=== PATIENT | female | born 1950 | race Caucasian/White ===

== ENCOUNTER 2019-09-06 05:28 | Inpatient (IN) | payer OTHER ==
[2019-09-06] VITALS (14 sets, daily range): BP systolic 98–188; BP diastolic 61–119
[~2019-09-06] VITALS: Ht 157.5 cm; Wt 85.9 kg
[2019-09-06] MEDS ORDERED: METHOCARBAMOL500 M2 PO (05:53)
[2019-09-06] MEDS ORDERED: TYLENOL EXTRA500 MG PO (05:54)
[2019-09-06] MEDS ORDERED: EXCEDRIN MIGRA1 EAC1 (05:57)
[2019-09-06] MEDS ORDERED: MOTRIN IB PO (05:59)
[2019-09-06 06:09] LABS: HEMATOCRIT 34.5 % (37.0-47.0); HEMOGLOBIN 11.4 gm/dL (12.0-15.0); MCH 24.3 pg (26.0-34.0); MCHC 33.1 g/dL (28.0-37.0); MCV 73.4 fL (80.0-100.0); MPV 6.8 fl. (7.2-11.1); NUCLEATED RBCS 0 /100WBC; PLATELET COUNT* 779 thou/uL (150-400); RDW-CV 17.2 % (10.5-14.5); WBC 25.3 thou/uL (4.0-11.0)
[2019-09-06 06:18] LABS: INR 1.3; PROTIME 13.7 Seconds (9.20-11.50)
[2019-09-06 06:28] LABS: ALBUMIN 2.3 g/dL (3.4-5.0); CALCIUM 8.2 mg/dL (8.5-10.1); CREATININE 1.8 mg/dL (0.6-1.3); TOTAL PROTEIN 6.6 g/dL (6.4-8.2)
[2019-09-06 06:31] LABS: POTASSIUM 2.7 mmol/L (3.5-5.1)
[2019-09-06 07:08] LABS: ABSOLUTE EOSINOPHILS 0.3 thou/uL (0.0-0.7); ABSOLUTE LYMPHOCYTES 2.5 thou/uL (0.8-5.3); ABSOLUTE NEUTROPHILS 21.5 thou/uL (1.6-8.1); PLATELET ESTIMATE INCREASED
[2019-09-06 07:09] LABS: ANISOCYTOSIS 2+; BURR CELLS 2+; HYPOCHROMASIA 2+
[2019-09-06 07:10] LABS: MICROCYTES Occasional; OVALOCYTES 1+
[2019-09-06 12:15] LABS: URINE BILIRUBIN NEGATIVE (Negative); URINE BLOOD NEGATIVE (Negative); URINE CLARITY CLEAR; URINE COLOR YELLOW; URINE GLUCOSE-RANDOM NEGATIVE (Negative); URINE KETONES NEGATIVE (Negative); URINE LEUKOCYTES-REFLEX NEGATIVE (Negative); URINE NITRITE-REFLEX NEGATIVE (Negative); URINE PROTEIN TRACE (Negative); URINE SPECIFIC GRAVITY 1.015 (1.005-1.030); URINE UROBILINOGEN 0.2 E.U./dl (0.2-1.0)
--- NOTE | 2019-09-06 15:41 | EKG ---
[place] [address] ELECTROCARDIOGRAM REPORT Name: DEE DEE MORELAND Room: [address] IN .R.#: [id number] Admission: 09/06/19 Attend Phys: Jarrett Porter Discharge: Date of : 54 Date of Service: 09/06/19 0554 Report #: [id number] THIS REPORT FOR: //name// [facility] ED Test Date: 2019-09-06 Test Time: 05:54:46 Pat Name: DEE DEE MORELAND Department: Room: [facility] Gender: F Mechanic/Welder: STORMY : 1950 Requested By: Charlene Alcaraz Order Number: [id number] MD: Sundeep Broussard Measurements Intervals [place] Rate: 100 P: 49 AR: 194 QRS: -18 QRSD: 96 T: 57 QT: 389 QTc: 502 Interpretive Statements Sinus tachycardia with rare PVC Left atrial enlargement Borderline left axis deviation Possible anteroseptal infarct, age indeterminant Prolonged QT interval No previous ECG available for comparison Electronically Signed On 09-06-2019 15:40:51 CDT by Sundeep Broussard [email or web address] <ELECTRONICALLY SIGNED> By: Sundeep Broussard MD, [facility] 09/06/19 1540 0554 0554 Sundeep Broussard MD, [facility] /EPI
[2019-09-06 16:03] LABS: CALCIUM 8.2 mg/dL (8.5-10.1); CREATININE 1.6 mg/dL (0.6-1.3); MAGNESIUM 1.9 mg/dL (1.8-2.4)
[2019-09-06 16:05] LABS: POTASSIUM 4.4 mmol/L (3.5-5.1)
[2019-09-06 19:57] LABS: CALCIUM 7.5 mg/dL (8.5-10.1); CREATININE 1.8 mg/dL (0.6-1.3); MAGNESIUM 1.8 mg/dL (1.8-2.4); POTASSIUM 3.9 mmol/L (3.5-5.1)
[2019-09-06 23:46] LABS: POTASSIUM 3.7 mmol/L (3.5-5.1)
[2019-09-07] VITALS (21 sets, daily range): BP systolic 99–161; BP diastolic 61–91
[2019-09-07 06:05] LABS: ABSOLUTE BASOPHILS 0.1 thou/uL (0.0-0.2); ABSOLUTE EOSINOPHILS 0.1 thou/uL (0.0-0.7); ABSOLUTE LYMPHOCYTES 2.7 thou/uL (0.8-5.3); ABSOLUTE MONOCYTES 0.8 thou/uL (0.0-1.2); ABSOLUTE NEUTROPHILS 22.1 thou/uL (1.6-8.1); BASOPHILS 0.3 %; EOSINOPHILS 0.4 %; HEMATOCRIT 30.8 % (37.0-47.0); HEMOGLOBIN 10.1 gm/dL (12.0-15.0); LYMPHOCYTES 10.6 %; MCH 24.2 pg (26.0-34.0); MCHC 32.9 g/dL (28.0-37.0); MCV 73.5 fL (80.0-100.0); NUCLEATED RBCS 0 /100WBC; PLATELET COUNT* 740 thou/uL (150-400); POLYS 85.7 %; RBC 4.19 mil/uL (4.20-5.00); RDW-CV 17.1 % (10.5-14.5); WBC 25.8 thou/uL (4.0-11.0)
[2019-09-07 06:24] LABS: ALBUMIN 1.8 g/dL (3.4-5.0); CALCIUM 7.6 mg/dL (8.5-10.1); CREATININE 1.9 mg/dL (0.6-1.3); MAGNESIUM 1.8 mg/dL (1.8-2.4); POTASSIUM 3.9 mmol/L (3.5-5.1); TOTAL BILIRUBIN 1.2 mg/dL (<0.1-1.0); TOTAL PROTEIN 5.5 g/dL (6.4-8.2)
--- NOTE | 2019-09-07 10:20 | CON ---
[address] [address] CONSULTATION Name: DEE DEE MORELAND Room: [address] IN M.R.#: [id number] Admission: 09/06/19 Attend Phys: Jose Kathleen Discharge: Date of : 54 Report #: [id number] THIS REPORT FOR: //name// cc: Victor Manuel Lara MD, K. Gay MD ~ THIS REPORT FOR: //name// CC: Victor Manuel Porter DATE OF SERVICE: 09/07/2019 INFECTIOUS DISEASE CONSULTATION ATTENDING PHYSICIAN: Jarrett Porter DO REASON FOR EVALUATION: Bandemia. HISTORY OF PRESENT ILLNESS: Chart reviewed, patient examined. 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 She has had progressive weakness, does have a fairly new onset of what described as very significant back discomfort and pain. There is noted to have vertebral issues. It is not clear if she has had any fevers. She admits to weight loss, although is not sure to the extent, a diminished appetite. No significant pulmonary-related complaints. On initial evaluation, was noted to be markedly hyponatremic as well as hypokalemic and mildly elevated hepatic transaminase. White count was elevated at 25.3 with 21% bands. COVID testing was negative. 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 One on the left measuring up to 23 cm in diameter, peritoneal carcinomatosis, probable hepatic metastatic disease. TSH was found to be elevated as well. Urinalysis was unremarkable. Due to some hemodynamic instability, she was admitted to the Intensive Care Unit, seen, has been afebrile. ALLERGIES: None known. CURRENT MEDICATIONS: Include tramadol, oxycodone, acetaminophen as needed, p.r.n. analgesics and antiemetics. PAST MEDICAL HISTORY: As described above, Ranjith-Danlos disease, Klippel-Feil syndrome, previous tonsillectomy. SOCIAL HISTORY: Smokes cigarettes, occasional ethanol, [place] [id number] CONSULTATION Name: DEE DEE MORELAND Room: [address]#: [id number] Admission: 09/06/19 Attend Phys: Jose Kathleen Discharge: Date of : 54 Report #: [id number] FAMILY HISTORY: Noncontributory. REVIEW OF SYSTEMS: Otherwise, unremarkable. PHYSICAL EXAMINATION: GENERAL: She appears chronically ill. She is pleasant, cooperative. She is pale appearing, undernourished. VITAL SIGNS: Temperature 98.1, pulse 90, respirations 17, blood pressure 132/72. SKIN: Warm, dry. HEENT: Normocephalic. Extraocular muscles are intact. NECK: Supple. LUNGS: Diminished breath sounds. HEART: Regular. I do not appreciate murmur. ABDOMEN: Protuberant, somewhat firm, it is not overtly tender. I do not think there are any peritoneal signs. EXTREMITIES: Lower Extremities: Trace edema. GENITOURINARY AND RECTAL: Deferred. LABORATORY DATA: Initial PT 13.7, INR of 1.3. Electrolytes: Sodium 113, potassium 2.7, chloride 80, bicarbonate is 19, anion gap of 14, BUN and creatinine 29 and 1.8, glucose of 126. AST of 73, ALT of 77, total bilirubin of 2.0, estimated GFR of 28, albumin 2.3. Total protein 6.6. Repeat white count still 25.8, H and H 10.1 and 30.8 and platelets of 740, although lacks bandemia at this point. Repeat sodium 116, potassium 3.9, chloride 86, bicarbonate is 20, anion gap of 10, BUN and creatinine 28 and 1.9, glucose of 106. AST of 43, ALT of 49. Albumin is now 1.8. Prealbumin of 5.6. Urinalysis is unremarkable. 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 Her initial white count 25,000 with marked bandemia, so we can exclude an infectious component. I do not see a specific focus of pyogenic bacterial infection. We will check a chest x-ray. Hyponatremia is often associated with the lungs and/or brain, may have a syndrome of inappropriate antidiuretic hormone. Agree with need to confirm diagnosis with biopsy, further electrolyte correction at an incremental pace given the likelihood that has been going on for some time in terms of the hyponatremia with slow progression. We will start empiric antimicrobial therapy at this point. She is not overtly toxic, although appears quite ill. We would initially need to consider opportunistic type infections as well. We will follow expectantly. <ELECTRONICALLY SIGNED> By: Wilbert Galeana MD 09/07/19 1020 0929 Edison Galeana MD /nt
[2019-09-07 15:29] LABS: CALCIUM 7.3 mg/dL (8.5-10.1); CREATININE 1.8 mg/dL (0.6-1.3); POTASSIUM 4.5 mmol/L (3.5-5.1)
[2019-09-07 22:26] LABS: ALBUMIN 1.8 g/dL (3.4-5.0); CALCIUM 7.5 mg/dL (8.5-10.1); CREATININE 1.9 mg/dL (0.6-1.3); POTASSIUM 4.1 mmol/L (3.5-5.1); TOTAL BILIRUBIN 1.4 mg/dL (<0.1-1.0); TOTAL PROTEIN 5.8 g/dL (6.4-8.2)
[2019-09-07 22:30] LABS: HEMATOCRIT 30.5 % (37.0-47.0); HEMOGLOBIN 10.1 gm/dL (12.0-15.0); MCH 24.4 pg (26.0-34.0); MCHC 33.3 g/dL (28.0-37.0); MCV 73.4 fL (80.0-100.0); MPV 6.8 fl. (7.2-11.1); RBC 4.15 mil/uL (4.20-5.00); RDW-CV 17.5 % (10.5-14.5); WBC 28.5 thou/uL (4.0-11.0)
[2019-09-08] VITALS (21 sets, daily range): BP systolic 98–145; BP diastolic 58–88
[2019-09-08 06:24] LABS: ALBUMIN 1.7 g/dL (3.4-5.0); CALCIUM 7.6 mg/dL (8.5-10.1); CREATININE 1.9 mg/dL (0.6-1.3); POTASSIUM 4.4 mmol/L (3.5-5.1); TOTAL BILIRUBIN 1.5 mg/dL (<0.1-1.0); TOTAL PROTEIN 5.5 g/dL (6.4-8.2)
[2019-09-08 14:41] LABS: CALCIUM 7.3 mg/dL (8.5-10.1); POTASSIUM 4.4 mmol/L (3.5-5.1)
[2019-09-08 18:05] LABS: URINE POTASSIUM-RANDOM 19.7 mmol/L
[2019-09-08 19:58] LABS: CALCIUM 7.5 mg/dL (8.5-10.1); POTASSIUM 4.2 mmol/L (3.5-5.1)
[2019-09-09] VITALS (21 sets, daily range): BP systolic 103–166; BP diastolic 58–111
[2019-09-09 05:45] LABS: ABSOLUTE EOSINOPHILS 0.1 thou/uL (0.0-0.7); ABSOLUTE LYMPHOCYTES 1.2 thou/uL (0.8-5.3); ABSOLUTE MONOCYTES 0.3 thou/uL (0.0-1.2); ABSOLUTE NEUTROPHILS 29.6 thou/uL (1.6-8.1); EOSINOPHILS 0.4 %; HEMOGLOBIN 8.9 gm/dL (12.0-15.0); LYMPHOCYTES 3.7 %; MCH 24.1 pg (26.0-34.0); MCHC 32.8 g/dL (28.0-37.0); MCV 73.3 fL (80.0-100.0); MONOCYTES 1.1 %; MPV 6.6 fl. (7.2-11.1); NUCLEATED RBCS 0 /100WBC; POLYS 94.8 %; RBC 3.68 mil/uL (4.20-5.00); RDW-CV 17.4 % (10.5-14.5); WBC 31.2 thou/uL (4.0-11.0)
[2019-09-09 05:58] LABS: ALBUMIN 1.5 g/dL (3.4-5.0); CALCIUM 7.5 mg/dL (8.5-10.1); PLATELET COUNT* 696 thou/uL (150-400); POTASSIUM 4.2 mmol/L (3.5-5.1); TOTAL BILIRUBIN 1.1 mg/dL (<0.1-1.0); TOTAL PROTEIN 5.3 g/dL (6.4-8.2)
[2019-09-09 06:00] LABS: PREALBUMIN 6.2 mg/dL (18.0-35.7)
--- NOTE | 2019-09-25 09:37 | CON ---
[address] [address] CONSULTATION Name: DEE DEE MORELAND Room: [address] IN M.R.#: [id number] Admission: 09/06/19 Attend Phys: Jose Kathleen Discharge: 09/09/19 Date of : 54 Report #: [id number] THIS REPORT FOR: //name// cc: Victor Manuel Lara MD, K. Gay MD ~ THIS REPORT FOR: //name// CC: Victor Manuel Porter DATE OF SERVICE: 09/07/2019 REQUESTING PHYSICIAN: Dr. Porter. REASON FOR CONSULTATION: Hyponatremia and acute kidney injury. HISTORY OF PRESENT ILLNESS: The patient is a 69-year-old white female presented to the hospital on 09/06/2019 with chief complaints of abdominal distention. The patient states that abdominal distention and back pain have been there for about a week, but now it is significantly worse. When she was examined, a very distended abdomen was found. She had abdominal CT scan done that revealed that she had very large abdominal mass, most likely originated from the left ovary. Mass was 20 x 22 x 23 cm. There was also a large cyst adenocarcinoma of the ovary. There was also some complete blockage of the left kidney and the right kidney with moderate hydronephrosis. Peritoneal carcinomatosis was present as well and 7 mm noncalcified pulmonary nodule was found in the inferior right middle lobe consistent with pulmonary metastatic disease. There was possible hepatic metastatic disease as well. Her creatinine was 1.8 and her sodium was 113. PAST MEDICAL HISTORY: Significant for chronic back pain. MEDICATIONS: Prior to admission were none. SOCIAL HISTORY: Current smoker of cigarettes. Alcohol use only socially. REVIEW OF SYSTEMS: Positive for abdominal distention, back pain, decreased urine output, decreased bowel movement, poor appetite. Rest of the systems reviewed and negative. PHYSICAL EXAMINATION: GENERAL: Awake, alert, oriented. VITAL SIGNS: Blood pressure 123/72, heart rate 118, and afebrile. HEENT: Pupils are round. NECK: Supple. LUNGS: [place] [address] CONSULTATION Name: DEE DEE MORELAND Room: [address]#: [id number] Admission: 09/06/19 Attend Phys: Jose Kathleen Discharge: 09/09/19 Date of : 54 Report #: [id number] CARDIOVASCULAR: Regular rate. ABDOMEN: Very distended and big mass is palpable. LOWER EXTREMITIES: No edema. LABORATORY DATA: Serum sodium 117, potassium 4.5, chloride 88, carbon dioxide 17, BUN 27, creatinine 1.8. ASSESSMENT: 1. Acute kidney injury due to obstructive uropathy. 2. Obstructive uropathy due to large pelvic mass. 3. Hyponatremia, most likely due to cancer. PLAN: Continue with 2% saline and await diagnosis. The patient also could be hyponatremic because of the volume depletion. So at this point, I will give her 500 mL of the saline and recheck her sodium. Thank you very much. <ELECTRONICALLY SIGNED> By: Cesar Romero MD 09/25/19 0937 1539 [id number] Romero MD /[facility]
== END 2019-09-09 21:40 | disposition short-term general hospital (02) | DRG 682 ==
LOC: M.ERS 05:28 → M.ICU 09:35 → M.TBA-ER 09:35 → M.ICU 11:00
PROVIDERS: Internal Medicine; Internal Medicine Nephrology; Personal Emergency Response Attendant; ADMIT Internal Medicine; ATTEND Internal Medicine
PROC: 02HV33Z Insertion of Infusion Device into Superior Vena Cava, Percutaneous Approach (ICD-10-PCS; principal; 2019-09-07)
DX: N17.0 Acute kidney failure with tubular necrosis (principal); E43 Unspecified severe protein-calorie malnutrition; R65.11 Systemic inflammatory response syndrome (SIRS) of non-infectious origin with acute organ dysfunction; E87.0 Hyperosmolality and hypernatremia; C56.2 Malignant neoplasm of left ovary; C56.1 Malignant neoplasm of right ovary; C78.7 Secondary malignant neoplasm of liver and intrahepatic bile duct; C78.6 Secondary malignant neoplasm of retroperitoneum and peritoneum; N13.30 Unspecified hydronephrosis; N18.4 Chronic kidney disease, stage 4 (severe); Z20.828 Contact with and (suspected) exposure to other viral communicable diseases; E87.6 Hypokalemia; G89.29 Other chronic pain; M54.9 Dorsalgia, unspecified; F17.210 Nicotine dependence, cigarettes, uncomplicated; R91.1 Solitary pulmonary nodule; E05.90 Thyrotoxicosis, unspecified without thyrotoxic crisis or storm; N26.1 Atrophy of kidney (terminal); Z68.34 Body mass index [BMI] 34.0-34.9, adult; Q76.1 Klippel-Feil syndrome; Z79.82 Long term (current) use of aspirin; Z79.899 Other long term (current) drug therapy